=== PATIENT | female | born 1950 | race Caucasian/White ===

== ENCOUNTER → 2019-09-14 11:30 | Outpatient (BNVA) | payer MEDICARE, SELFPAY | PROVIDERS: Family Provider Family Medicine; PCP Nurse Practitioner Family; Visit Provider Internal Medicine Cardiovascular Disease | DX: D69.9 Hemorrhagic condition, unspecified (principal) | CPT/HCPCS: 36416; 85610 ==

== ENCOUNTER → 2019-09-21 12:01 | Outpatient (BNVA) | payer MEDICARE, SELFPAY | PROVIDERS: Family Provider Family Medicine; PCP Nurse Practitioner Family; Visit Provider Internal Medicine Cardiovascular Disease | DX: Z79.01 Long term (current) use of anticoagulants (principal) | CPT/HCPCS: 85610 ==

== ENCOUNTER → 2019-09-30 13:22 | Outpatient (BNVA) | payer MEDICARE, SELFPAY | PROVIDERS: Family Provider Family Medicine; PCP Nurse Practitioner Family; Visit Provider Internal Medicine Cardiovascular Disease | DX: D69.9 Hemorrhagic condition, unspecified (principal); I48.91 Unspecified atrial fibrillation | CPT/HCPCS: 85610 ==

== ENCOUNTER → 2019-10-12 11:24 | Outpatient (BNVA) | payer MEDICARE, SELFPAY | PROVIDERS: Family Provider Family Medicine; PCP Nurse Practitioner Family; Visit Provider Family Medicine | DX: Z79.01 Long term (current) use of anticoagulants (principal) | CPT/HCPCS: 85610 ==

== ENCOUNTER → 2020-08-02 15:28 | Outpatient (BNVA) | payer MEDICARE, SELFPAY | PROVIDERS: Family Provider Family Medicine; PCP Nurse Practitioner Family; Visit Provider Internal Medicine Cardiovascular Disease | DX: I48.91 Unspecified atrial fibrillation (principal) | CPT/HCPCS: 85610 ==

== ENCOUNTER → 2020-08-08 14:03 | Outpatient (BNVA) | payer MEDICARE, SELFPAY | PROVIDERS: Family Provider Family Medicine; PCP Nurse Practitioner Family; Visit Provider Family Medicine | DX: I48.91 Unspecified atrial fibrillation (principal) | CPT/HCPCS: 85610 ==

== ENCOUNTER 2020-09-01 08:11 | Outpatient (CLI) | payer MEDICARE, SELFPAY ==
--- NOTE | 2020-09-01 08:45 | USCV_ITS ---
Blanche Singleton Age: 70 Gender: F : 1950 Exam Date: 09/01/2020 08:43 Ordering Phys: Alberta Callahan MD ([email or web address]) Technologist: Barbi Reed Exam Location: [facility] – [place] Indication: AFIB, KNOWN CAD BP: 126 / 74 HR: 75 Rhythm: Sinus Technical Quality: Adequate MEASUREMENTS (Male / Female) Normal Values 2D ECHO LV Diastolic Diameter PLAX 3.1 cm 4.2 - 5.9 / 3.9 - 5.3 cm LV Systolic Diameter PLAX 2.5 cm LV Chamber Size 3.6 cm IVS Diastolic Thickness 1.3 cm 0.6 - 1.0 / 0.6 - 0.9 cm IVS Systolic Thickness 1.3 cm LVPW Diastolic Thickness 1.2 cm 0.6 - 1.0 / 0.6 - 0.9 cm LVPW Systolic Thickness 1.6 cm RV Chamber Size 2.8 cm LVOT Diameter 2.1 cm LV Ejection Fraction 2D Teich 39.2 % LV Ejection Fraction MOD 2C 64.6 % LV Ejection Fraction 2C AL 63.8 % LA Diameter 4.9 cm LA Width 3.5 cm LA Height 5.0 cm RA Width 3.5 cm RA Height 4.1 cm M-MODE LV Diastolic Diameter MM 3.3 cm 4.2 - 5.9 / 3.9 - 5.3 cm LV Systolic Diameter MM 2.0 cm LV Ejection Fraction MM Teich 71.1 % IVS Diastolic Thickness MM 0.8 cm 0.6 - 1.0 / 0.6 - 0.9 cm IVS Systolic Thickness MM 1.3 cm LVPW Diastolic Thickness MM 1.1 cm 0.6 - 1.0 / 0.6 - 0.9 cm LVPW Systolic Thickness MM 1.5 cm RV Diastolic Diameter MM 1.2 cm Aortic Annulus Diameter 3.4 cm LA Ao Ratio MM 1.5 MV E Point Septal Separation 0.3 cm DOPPLER AV Peak Velocity 200.0 cm/s LVOT Peak Velocity 147.0 cm/s AV Area Cont Eq vti 2.5 cm squared AV Area Cont Eq pk 2.5 cm squared MV Area PHT 3.9 cm squared Mitral E to A Ratio 1.1 MV E' Velocity 54.0 cm/s Mitral E to MV E' Ratio 9.0 Mitral E to LV E' Lateral Ratio 8.9 Mitral E to LV E' Septal Ratio 9.3 TR Peak Velocity 130.7 cm/s TR Peak Gradient 6.8 mmHg TR Mean Velocity 103.5 cm/s TR Mean Gradient 4.7 mmHg TR Velocity Time Integral 34.1 cm TV Peak E Velocity 60.0 cm/s Right Atrial Pressure 3.0 mmHg Pulmonary Artery Systolic Pressu 9.8 mmHg PV Peak Velocity 85.0 cm/s RV Acceleration Time 0.1 s RV Ejection Time 0.4 s RV AcT/ET 0.4 FINDINGS Left Ventricle Normal left ventricular size, systolic function and wall thickness, with no regional wall motion abnormalities. Left ventricular ejection fraction is estimated at 65 %. Normal diastolic function. Right Ventricle Normal right ventricular size and systolic function. Right ventricular systolic pressure 9.8 mmHg. Right Atrium Normal right atrial size. Left Atrium Mildly increased left atrial size. Mitral Valve Thickened mitral valve. No mitral valve stenosis. Trace mitral valve regurgitation. Aortic Valve Aortic valve not well visualized. Thickened aortic valve. No aortic valve stenosis. No aortic valve regurgitation. Tricuspid Valve Structurally normal tricuspid valve. Trace to mild tricuspid valve regurgitation. Pulmonic Valve Pulmonic valve not well visualized. Pericardium No pericardial effusion. Aorta Normal sized aortic root. Normal sized inferior vena cava. CONCLUSIONS 1. Normal left ventricular size, systolic function and wall thickness, with no regional wall motion abnormalities. Left ventricular ejection fraction is estimated at 65 %. Normal diastolic function. 2. Normal right ventricular size and systolic function. 3. No significant valvular abnormaity. 4. Normal pulmonary artery pressure. 5. No prior similar studies to compare. Brittany Lubin MD (Electronically Signed) Final Date: 04 September 2020 21:28 S
== END 2020-09-01 08:12 | disposition home or self-care (01) ==
LOC: RAD 08:23
PROVIDERS: PCP Family Medicine; Visit Provider Internal Medicine Cardiovascular Disease
DX: I48.91 Unspecified atrial fibrillation (principal); I25.10 Atherosclerotic heart disease of native coronary artery without angina pectoris
CPT/HCPCS: 93306

== ENCOUNTER → 2021-01-08 10:31 | Outpatient (BNVA) | payer MEDICARE, SELFPAY | PROVIDERS: PCP Family Medicine; Visit Provider Family Medicine | DX: I10 Essential (primary) hypertension (principal); E05.90 Thyrotoxicosis, unspecified without thyrotoxic crisis or storm; L30.9 Dermatitis, unspecified; I48.91 Unspecified atrial fibrillation; F17.219 Nicotine dependence, cigarettes, with unspecified nicotine-induced disorders | CPT/HCPCS: 80053; 80061; 82043; 82728; 83550; 84439; 84443; 84481; 85025 ==

== ENCOUNTER → 2021-05-31 10:05 | Outpatient (BNVA) | payer MEDICARE, SELFPAY | PROVIDERS: PCP Family Medicine; Visit Provider Family Medicine | DX: E05.90 Thyrotoxicosis, unspecified without thyrotoxic crisis or storm (principal); I48.91 Unspecified atrial fibrillation | CPT/HCPCS: 80053; 83516; 84439; 84443; 84480; 85025 ==

== ENCOUNTER → 2021-08-09 10:40 | Outpatient (BNVA) | payer MEDICARE, SELFPAY | PROVIDERS: PCP Family Medicine; Visit Provider Internal Medicine | DX: E05.90 Thyrotoxicosis, unspecified without thyrotoxic crisis or storm (principal); I48.91 Unspecified atrial fibrillation; E04.1 Nontoxic single thyroid nodule | CPT/HCPCS: 99214 ==

== ENCOUNTER 2021-09-21 14:01 | Outpatient (CLI) | payer MEDICARE, SELFPAY ==
--- NOTE | 2021-09-21 15:00 | USCV_ITS ---
Blanche Singleton Age: 71 Gender: F : 1950 Exam Date: 09/21/2021 14:32 Ordering Phys: Nikole Hardwick DO Technologist: DESI Exam Location: [facility] – [place] Indication: RT LEG PAIN / NUMBNESS HISTORY: RT LEG PAIN / NUMBNESS PROCEDURES: The venous duplex Doppler examination of both lower extremities was performed in the standard fashion. The following venous structures were evaluated: common femoral vein, profunda vein, proximal portion of the greater saphenous vein, superficial femoral vein, and the popliteal vein. In addition, the posterior tibial and peroneal trunk were evaluated. FINDINGS: Normal 2-D Doppler and augmentation and compressibility throughout the lower extremity venous structures. Additional imaging through the proximal calf veins also reveals no thrombus. Limited evaluation of the greater saphenous vein is patent with no thrombus. CONCLUSIONS No DVT right lower extremity. Dr. Gemini Mock DO (Electronically Signed) Final Date: 21 September 2021 15:34 S
== END 2021-09-21 14:02 | disposition home or self-care (01) ==
LOC: RAD 14:16
PROVIDERS: PCP Family Medicine; Visit Provider Family Medicine
DX: M79.604 Pain in right leg (principal); R20.0 Anesthesia of skin
CPT/HCPCS: 93971

== ENCOUNTER 2021-10-15 15:01 | Outpatient (CLI) | payer MEDICARE, SELFPAY ==
--- NOTE | 2021-10-15 15:07 | XR_ITS ---
WS: [id number] Exam: XR hip RT 2-3V wo/w pel* [id number] Date/Time of Exam: 10/15/2021 3:16 PM Reason For Exam: right hip pain No fracture or dislocation. Mild degenerative change of the joint compartment. Normal soft tissues. O steopenia. XR/XR hip RT 2-3V wo/w pel* [id number] IMPRESSION: 1. Mild DJD. Osteopenia.
== END 2021-10-15 15:02 | disposition home or self-care (01) ==
PROVIDERS: PCP Family Medicine; Visit Provider Family Medicine
DX: M16.11 Unilateral primary osteoarthritis, right hip (principal); M85.88 Other specified disorders of bone density and structure, other site
CPT/HCPCS: 73502

== ENCOUNTER 2022-03-08 12:17 | Outpatient (CLI) | payer MEDICARE, SELFPAY ==
--- NOTE | 2022-03-08 12:45 | US_ITS ---
WS: [id number] THYROID ULTRASOUND HISTORY: thyroid nodule COMPARISON: 01/15/2018 Right lobe: 5.1 cm x 4.0 cm x 10.0 cm (w x ap x l). Volume: 107.5 cm3. Markedly enlarged heterogeneous, nodular thyroid. There is increased vascularity throughout. There ar e no well discrete nodules or hypoechoic nodules with echogenic foci which are progressing. Left lobe: 3.2 cm x 3.2 cm x 7.3 cm (w x ap x l). Volume: 39.5 cm3. Enlarged thyroid with very heterogeneous with multiple nodular changes. There are a few areas of shad owing from coarse calcifications. Isthmus: 2.5 cm. US/US thyroid [id number] IMPRESSION: 1. Markedly enlarged heterogeneous nodular thyroid most consistent with a mult inodular goiter. There is not one discrete nodule that is more concerning than another. Would be difficult to determine a focal nodule which would be at incre ased risk for carcinoma. 2. Thyroid gland has increased in size since 01/15/2018.
== END 2022-03-08 12:18 | disposition home or self-care (01) ==
PROVIDERS: PCP Family Medicine; Visit Provider Internal Medicine
DX: E05.90 Thyrotoxicosis, unspecified without thyrotoxic crisis or storm (principal)
CPT/HCPCS: 76536

== ENCOUNTER → 2022-03-13 11:53 | Outpatient (BNVA) | payer MEDICARE, SELFPAY | PROVIDERS: PCP Family Medicine; Visit Provider Internal Medicine | DX: E04.1 Nontoxic single thyroid nodule (principal); E05.90 Thyrotoxicosis, unspecified without thyrotoxic crisis or storm | CPT/HCPCS: 84439; 84443; 84480 ==

== ENCOUNTER → 2022-03-21 09:36 | Outpatient (BNVA) | payer MEDICARE, SELFPAY | PROVIDERS: PCP Family Medicine; Visit Provider Internal Medicine | DX: F17.210 Nicotine dependence, cigarettes, uncomplicated (principal); E05.90 Thyrotoxicosis, unspecified without thyrotoxic crisis or storm; I48.91 Unspecified atrial fibrillation; E04.1 Nontoxic single thyroid nodule | CPT/HCPCS: 99214 ==

== ENCOUNTER → 2022-06-03 11:07 | Outpatient (BNVA) | payer MEDICARE, SELFPAY | PROVIDERS: PCP Family Medicine; Visit Provider Internal Medicine | DX: I48.91 Unspecified atrial fibrillation (principal); E05.90 Thyrotoxicosis, unspecified without thyrotoxic crisis or storm; E04.1 Nontoxic single thyroid nodule | CPT/HCPCS: 84439; 84443; 84481 ==

== ENCOUNTER → 2022-09-03 11:22 | Outpatient (BNVA) | payer MEDICARE, SELFPAY | PROVIDERS: PCP Family Medicine; Visit Provider Internal Medicine | DX: E04.1 Nontoxic single thyroid nodule (principal); E05.90 Thyrotoxicosis, unspecified without thyrotoxic crisis or storm; I48.91 Unspecified atrial fibrillation; I10 Essential (primary) hypertension | CPT/HCPCS: 84439; 84443; 84480 ==

== ENCOUNTER → 2022-11-12 13:04 | Outpatient (BNVA) | payer MEDICARE, SELFPAY | PROVIDERS: PCP Family Medicine; Visit Provider Internal Medicine | DX: I48.91 Unspecified atrial fibrillation (principal); E05.90 Thyrotoxicosis, unspecified without thyrotoxic crisis or storm | CPT/HCPCS: 84439; 84443; 84480 ==

== ENCOUNTER → 2022-11-18 13:42 | Outpatient (BNVA) | payer MEDICARE, SELFPAY | PROVIDERS: PCP Family Medicine; Visit Provider Internal Medicine | DX: I48.91 Unspecified atrial fibrillation (principal); E04.1 Nontoxic single thyroid nodule; E05.90 Thyrotoxicosis, unspecified without thyrotoxic crisis or storm | CPT/HCPCS: 84439 ==

== ENCOUNTER → 2023-04-01 15:05 | Outpatient (BNVA) | payer MEDICARE, SELFPAY | PROVIDERS: PCP Family Medicine; Visit Provider Internal Medicine Cardiovascular Disease | DX: I44.0 Atrioventricular block, first degree (principal); I10 Essential (primary) hypertension; F17.219 Nicotine dependence, cigarettes, with unspecified nicotine-induced disorders | CPT/HCPCS: 93005; 99213 ==

== ENCOUNTER 2023-09-02 13:13 | Emergency (ER) | payer MEDICARE, SELFPAY ==
[2023-09-02 13:54] VITALS: BP 100/69; PULSE 103; RESP 16; TEMP 36.7; O2SAT 97; BMI 22.0
--- NOTE | 2023-09-02 17:46 | ED_ITS ---
HPI - Dizziness General: Chief Complaint: Dizziness Stated Complaint: Dizzieness Time Seen by Provider: 09/02/23 17:38 Source: patient Mode of arrival: EMS History of Present Illness: MD elicited complaint: dizziness Associated symptoms: Denies chest pain or chills Review of Systems Const: Denies: fever(s) or chills Card: Denies: chest pain Resp: Denies: dyspnea GI: Denies: abdominal pain : Denies: dysuria, urinary frequency or urinary urgency Musc: Denies: neck pain or back pain Skin/Breast: Denies: rash PFSH ED PFSH: Medical History Osteopenia Anemia Thyroid disease Hx of hyperthroidism - treated about 2 years ago. Hypertension Atrial fibrillation Surgical History H/O: hysterectomy H/O mastectomy Hx of breast implants, bilateral Family History Other Cancer Social History Smoking and tobacco/nicotine status: current every day tobacco/nicotine user cigarettes Packs smoked per day: 0.5 Alcohol intake: never Substance/Drug Use: never Physical Exam Const: COMMON NORMALS: no acute distress GENERAL APPEARANCE: cooperative and comfortable ORIENTATION/CONSCIOUSNESS: Yes awake, Yes oriented to person, Yes oriented to place and Yes oriented to time HENMT: COMMON NORMALS: normocephalic, atraumatic and hearing grossly normal bilaterally HEAD & SCALP: normocephalic and atraumatic Resp: COMMON NORMALS: normal respiratory effort, No retractions, No use of accessory muscles and clear to auscultation bilaterally AUSCULTATION: clear to auscultation bilaterally Cardio: COMMON NORMALS: regular rate, regular rhythm and No murmurs present (Cardio) RATE: regular rate RHYTHM: regular rhythm GI: COMMON NORMALS: Soft to palpation and No hepatosplenomegaly present AUSCULTATION: Yes normoactive bowel sounds PALPATION: Yes Soft to palpation, No Tenderness to palpation present (GI), No Guarding due to palpation present (GI) and Yes No hepatosplenomegaly present Extremity: COMMON NORMALS: normal to inspection, capillary refill normal, no clubbing, cyanosis or edema, no calf tenderness and no pedal edema Neuro: SENSORIUM/ORIENTATION: Yes oriented to person, Yes oriented to place and Yes oriented to time Skin: COMMON NORMALS: no rashes or lesions noted GENERAL SKIN EXAM: no rashes or lesions noted Course Vital Signs: Vital signs: Vital Signs Temperature 98.1 F 09/02/23 13:54 Pulse Rate 103 H 09/02/23 13:54 Respiratory Rate 16 09/02/23 13:54 Blood Pressure 100/69 09/02/23 13:54 Pulse Oximetry 97 09/02/23 13:54 Oxygen Delivery Me thod Room Air 09/02/23 13:54 Discharge Plan Discharge Condition: Stable Prescriptions: No Action ferrous sulfate [Feosol] 325 mg (65 mg iron) tablet 325 mg PO DAILY clobetasol 0.05 % ointment 1 applic topical BID PRN Rx Instructions: Start- apply to hands and feet x 2 weeks then switch to triamcinolone triamcinolone acetonide 0.1 % ointment 1 applic topical BID PRN Rx Instructions: apply to hands and feet x 2 weeks alternating with clobetasol acetaminophen 325 mg tablet 325 mg PO QID PRN losartan-hydrochlorothiazide 100-25 mg tablet 1 tab PO DAILY Qty: 90 1RF metoprolol succinate 25 mg tablet extended release 24 hr 37.5 mg PO DAILY Qty: 135 1RF Referrals: Nikole Hardwick DO [Primary Care Provider] - Coding Level of Care Code ED 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
--- NOTE | 2023-09-02 17:47 | XRR_ITS ---
PROCEDURE INFORMATION: Exam: XR Chest Exam date and time: 09/02/2023 5:54 PM Age: 73 years old Clinical indication: Patient HX: C/O dizziness, cough; Additional info: Dyspnea/cough TECHNIQUE: Imaging protocol: Radiologic exam of the chest. Views: 1 view. COMPARISON: CR XR chest 1V [id number] 01/28/2018 17:42 FINDINGS: Lungs: Chronic interstitial prominence in both lungs. Probable emphysema. Mild atelectasis or scarring in the lung bases. Pleural spaces: Unremarkable. No pleural effusion. No pneumothorax. Heart/Mediastinum: Unremarkable. No cardiomegaly. Bones/joints: Thoracolumbar scoliosis and degenerative changes. No acute fracture visualized. Soft tissues: Right breast implant. XR/XR chest 1V portable [id number] IMPRESSION: No acute findings.
--- NOTE | 2023-09-02 17:55 | W.ED.SOB ---
Documented by User: Michael Valentine DO 09/03/23 06:55 HPI - SOB/Dyspnea General: Chief Complaint: Dizziness Stated Complaint: Dizzieness Time Seen by Provider: 09/02/23 17:38 Source: patient Mode of arrival: EMS History of Present Illness: HPI Narrative: 73-year-old female presents emergency room related dizziness shortness of breath cough nausea weakness and diarrhea generalized malaise along with a headache this been going on for the last 4 to 5 days. She is seen in a primary care office this morning and diagnosed with pneumonia she had been worsening so and presented to the emergency room. She was started on oral antibiotics this morning. She has no known history of any heart disease known history of chronic respiratory illness. They did do a COVID antigen this morning which was negative. MD elicited complaint: shortness of breath and cough Onset (ago): day(s) (5) Context: recent illness Timing: constant and progressively worsening Severity: mild Exacerbating factors: exertion and coughing Relieving factors: nothing Associated symptoms: Reports chest congestion, cough, fever(s), myalgias and nausea; Deny abdominal pain, chest pain, diaphoresis, dizziness, extremity pain, hemoptysis, lightheadedness, orthopnea, palpitations, paresthesias, polydipsia, polyuria, rash, sense of impending doom, syncope or vomiting Treatment prior to arrival: oxygen Related Data: Home oxygen amount: none Review of Systems Const: Reports: fever(s); Denies: diaphoresis Card: Denies: chest pain, palpitations, lightheadedness, syncope or orthopnea Resp: Reports: chest congestion; Denies: hemoptysis GI: Reports: nausea; Denies: abdominal pain or vomiting : Denies: dysuria, urinary frequency or urinary urgency Musc: Denies: extremity pain Skin/Breast: Denies: rash Neuro: Denies: dizziness Endo: Denies: polyuria or polydipsia PFSH ED PFSH: Medical History Osteopenia Anemia Thyroid disease Hx of hyperthroidism - treated about 2 years ago. Hypertension Atrial fibrillation Surgical History H/O: hysterectomy H/O mastectomy Hx of breast implants, bilateral Family History Other Cancer Social History Smoking and tobacco/nicotine status: current every day tobacco/nicotine user cigarettes Packs smoked per day: 0.5 Alcohol intake: never Substance/Drug Use: never Physical Exam Const: GENERAL APPEARANCE: cooperative and comfortable ORIENTATION/CONSCIOUSNESS: Yes awake, Yes oriented to person, Yes oriented to place and Yes oriented to time HENMT: COMMON NORMALS: normocephalic, atraumatic and hearing grossly normal bilaterally HEAD & SCALP: normocephalic and atraumatic Resp: COMMON NORMALS: normal respiratory effort, No retractions and No use of accessory muscles AUSCULTATION: rhonchi and wheezes Cardio: COMMON NORMALS: regular rate, regular rhythm and No murmurs present (Cardio) RATE: regular rate RHYTHM: regular rhythm GI: COMMON NORMALS: Soft to palpation and No hepatosplenomegaly present AUSCULTATION: Yes normoactive bowel sounds PALPATION: Yes Soft to palpation, No Tenderness to palpation present (GI), No Guarding due to palpation present (GI) and Yes No hepatosplenomegaly present Extremity: COMMON NORMALS: normal to inspection, capillary refill normal, no clubbing, cyanosis or edema, no calf tenderness and no pedal edema Neuro: SENSORIUM/ORIENTATION: Yes oriented to person, Yes oriented to place and Yes oriented to time Skin: COMMON NORMALS: no rashes or lesions noted GENERAL SKIN EXAM: no rashes or lesions noted Course Vital Signs: Vital signs: Vital Signs Temperature 98.1 F 09/02/23 13:54 Pulse Rate 100 09/02/23 20:55 Respiratory Rate 181 H 09/02/23 18:12 Blood Pressure 146/81 09/02/23 20:55 Pulse Oximetry 94 09/02/23 20:55 Oxygen Delivery Me thod Room Air 09/02/23 18:12 MDM - SOB/Dyspnea Medical Decision Making Care signed out to Dr. Duran at change of shift. See final notes for diagnosis and disposition. Physical exam completed document I reviewed the patient's laboratory findings as well as the initial chart after receiving report from the outgoing ER physician Dr. Valentine. I will provide the patient written prescription for p.o. antibiotics given her findings consistent with urinary tract infection. Lab Data 09/02/23 19:20 09/02/23 19:20 Labs/Radiology: Radiology Impressions Chest X-Ray 09/02/23 17:47 IMPRESSION: No acute findings. Laboratory Results WBC 4.10 10^3/uL (3.29-11.43) 09/02/23 19:20 RBC 4.12 10^6/uL (3.85-5.65) 09/02/23 19:20 Hgb 11.40 g/dL (11.27-16.99) 09/02/23 19:20 Hct 34.3 % (36-47) L 09/02/23 19:20 MCV 83.3 fl (85-98) L 09/02/23 19:20 MCH 27.7 pg (27-33) 09/02/23 19:20 MCHC 33.2 g/dL (30-55) 09/02/23 19:20 RDW 14.1 % (12.1-15.1) 09/02/23 19:20 Plt Count 165 10^3/cmm (157-399) 09/02/23 19:20 MPV 11.2 fL (7.4-10.4) H 09/02/23 19:20 Neut % (Auto) 59.3 % 09/02/23 19:20 Lymph % (Auto) 33.4 % 09/02/23 19:20 Bates % (Auto) 7.1 % 09/02/23 19:20 Eos % (Auto) 0.0 % 09/02/23 19:20 Baso % (Auto) 0.0 % 09/02/23 19:20 Neut # (Auto) 2.43 10^3/uL (1.8-7.7) 09/02/23 19:20 Lymph # (Auto) 1.4 10^3/uL (0.8-4.8) 09/02/23 19:20 Bates # (Auto) 0.3 10^3/uL (0.2-0.9) 09/02/23 19:20 Eos # (Auto) 0.0 10^3/uL (0.0-0.8) 09/02/23 19:20 Baso # (Auto) 0.0 10^3/uL (0.0-0.1) 09/02/23 19:20 Nucleated RBC % (auto) 0 % 09/02/23 19:20 Nucleated RBCs # 0.0 /100WBC 09/02/23 19:20 Sodium 139 mmol/L (136-145) 09/02/23 19:20 Potassium 3.7 mmol/L (3.5-5.1) 09/02/23 19:20 Chloride 105 mmol/L (98-107) 09/02/23 19:20 Carbon Dioxide 20 mmol/L (22-29) L 09/02/23 19:20 Anion Gap 17.7 (5-19) 09/02/23 19:20 BUN 31 mg/dL (8-23) H 09/02/23 19:20 Creatinine 1.3 mg/dL (0.5-0.9) H 09/02/23 19:20 GFR Calculation Not Reportable 09/02/23 19:20 Glucose 109 mg/dL (65-115) 09/02/23 19:20 Calculated Osmolality 295 mOsm/kg (285-295) 09/02/23 19:20 Calcium 10.6 mg/dL (8.5-10.5) H 09/02/23 19:20 Total Bilirubin 0.3 mg/dL (0.15-1.2) 09/02/23 19:20 AST 28 U/L (0-32) 09/02/23 19:20 ALT 11 U/L (0-33) 09/02/23 19:20 Alkaline Phosphatase 76 U/L (35-105) 09/02/23 19:20 Total Protein 7.0 g/dL (6.6-8.7) 09/02/23 19:20 Albumin 3.5 g/dL (3.5-5.2) 09/02/23 19:20 Globulin 3.5 g/dL (1.3-4.6) 09/02/23 19:20 Urine Color Dark yellow (Yellow) 09/02/23 19:21 Urine Appearance Sl hazy (CLEAR) A 09/02/23 19:21 Urine pH 5 (5-7) 09/02/23 19:21 Ur Specific [place] 1.020 (1.005-1.030) 09/02/23 19:21 Urine Protein Trace (Negative) 09/02/23 19:21 Urine Glucose (UA) Norm (Normal) 09/02/23 19:21 Urine Ketones Negative (Negative) 09/02/23 19:21 Urine Blood Trace (Negative) H 09/02/23 19:21 Urine Nitrate Negative (Negative) 09/02/23 19:21 Urine Bilirubin Neg (Negative) 09/02/23 19:21 Urine Urobilinogen Norm mg/dL (Negative) 09/02/23 19:21 Ur Leukocyte Esterase Trace (Negative) H 09/02/23 19:21 Urine RBC 0-4 /hpf (0-2) H 09/02/23 19:21 Urine WBC 0-4 /hpf (0-5) H 09/02/23 19:21 Ur Squamous Epith Cells 5-10 /hpf (0-5) H 09/02/23 19:21 Amorphous Sediment Trace /hpf 09/02/23 19:21 Urine Bacteria 1+ /hpf (NONE) H 09/02/23 19:21 Hyaline Casts 0-4 /lpf H 09/02/23 19:21 Fine Granular Casts 0-4 /lpf H 09/02/23 19:21 Urine Mucus 2+ /hpf 09/02/23 19:21 Coronavirus 229E (PCR) Not detected (NOT DETECT) 09/02/23 18:25 SARS-CoV-2 (PCR) Not detected (NOT DETECT) 09/02/23 18:25 Discharge Plan Discharge Patient Disposition: Home Clinical Impression: Urinary tract infection Qualifiers: Urinary tract infection type: acute cystitis Hematuria presence: without hematuria Qualified Code(s): N30.00 - Acute cystitis without hematuria Condition: Stable Prescriptions: New Macrobid 100 mg capsule 100 mg PO Q12H 7 Days Qty: 14 0RF Rx Instructions: must administer with a meal/food No Action ferrous sulfate [Feosol] 325 mg (65 mg iron) tablet 325 mg PO DAILY clobetasol 0.05 % ointment 1 applic topical BID PRN Rx Instructions: Start- apply to hands and feet x 2 weeks then switch to triamcinolone triamcinolone acetonide 0.1 % ointment 1 applic topical BID PRN Rx Instructions: apply to hands and feet x 2 weeks alternating with clobetasol acetaminophen 325 mg tablet 325 mg PO QID PRN losartan-hydrochlorothiazide 100-25 mg tablet 1 tab PO DAILY Qty: 90 1RF metoprolol succinate 25 mg tablet extended release 24 hr 37.5 mg PO DAILY Qty: 135 1RF Discharge Orders: Discharge ED (Routine); Ordered 09/02/23 Ordered By: Abel Duran Referrals: Nikole Hardwick DO [Primary Care Provider] - Discharge Diet: Advance as tolerated Patient Instructions: Opioid Safety, Pain Management Activity Restrictions/Additional Instructions: Activity Restrictions/Additional Instructions: Thank you for choosing [facility] for your healthcare needs today. Please realize that you were seen in the Emergency Department and that we are providing you with an emergency medical screening exam and this may not be a complete and all inclusive of all the testing and or medical work-up that you may need to determine your ailment or severity of your illness. It is very important that you follow-up as instructed with your Primary care provider or Specialist for additional evaluation and to discuss your medical treatment plan. You may return to the Emergency Department should you have concerns or if your condition changes or worsens in any way. Coding Level of Care Code ED Telemetry Registered Nurse for Chg Fwd Documented by User: Abel Duran MD 09/02/23 21:06 HPI - SOB/Dyspnea General: Chief Complaint: Dizziness Stated Complaint: Dizzieness Time Seen by Provider: 09/02/23 17:38 [facility] ED PFSH: Medical History Osteopenia Anemia Thyroid disease Hx of hyperthroidism - treated about 2 years ago. Hypertension Atrial fibrillation Surgical History H/O: hysterectomy H/O mastectomy Hx of breast implants, bilateral Family History Other Cancer Social History Smoking and tobacco/nicotine status: current every day tobacco/nicotine user cigarettes Packs smoked per day: 0.5 Alcohol intake: never Substance/Drug Use: never Course Vital Signs: Vital signs: Vital Signs Temperature 98.1 F 09/02/23 13:54 Pulse Rate 100 09/02/23 20:55 Respiratory Rate 181 H 09/02/23 18:12 Blood Pressure 146/81 09/02/23 20:55 Pulse Oximetry 94 09/02/23 20:55 Oxygen Delivery Me thod Room Air 09/02/23 18:12 MDM - SOB/Dyspnea Medical Decision Making Physical exam completed document I reviewed the patient's laboratory findings as well as the initial chart after receiving report from the outgoing ER physician Dr. Valentine. I will provide the patient written prescription for p.o. antibiotics given her findings consistent with urinary tract infection. Medical Records I reviewed the patient's medical records. Lab Data 09/02/23 19:20 09/02/23 19:20 Labs/Radiology: Radiology Impressions Chest X-Ray 09/02/23 17:47 IMPRESSION: No acute findings. Laboratory Results WBC 4.10 10^3/uL (3.29-11.43) 09/02/23 19:20 RBC 4.12 10^6/uL (3.85-5.65) 09/02/23 19:20 Hgb 11.40 g/dL (11.27-16.99) 09/02/23 19:20 Hct 34.3 % (36-47) L 09/02/23 19:20 MCV 83.3 fl (85-98) L 09/02/23 19:20 MCH 27.7 pg (27-33) 09/02/23 19:20 MCHC 33.2 g/dL (30-55) 09/02/23 19:20 RDW 14.1 % (12.1-15.1) 09/02/23 19:20 Plt Count 165 10^3/cmm (157-399) 09/02/23 19:20 MPV 11.2 fL (7.4-10.4) H 09/02/23 19:20 Neut % (Auto) 59.3 % 09/02/23 19:20 Lymph % (Auto) 33.4 % 09/02/23 19:20 Bates % (Auto) 7.1 % 09/02/23 19:20 Eos % (Auto) 0.0 % 09/02/23 19:20 Baso % (Auto) 0.0 % 09/02/23 19:20 Neut # (Auto) 2.43 10^3/uL (1.8-7.7) 09/02/23 19:20 Lymph # (Auto) 1.4 10^3/uL (0.8-4.8) 09/02/23 19:20 Bates # (Auto) 0.3 10^3/uL (0.2-0.9) 09/02/23 19:20 Eos # (Auto) 0.0 10^3/uL (0.0-0.8) 09/02/23 19:20 Baso # (Auto) 0.0 10^3/uL (0.0-0.1) 09/02/23 19:20 Nucleated RBC % (auto) 0 % 09/02/23 19:20 Nucleated RBCs # 0.0 /100WBC 09/02/23 19:20 Sodium 139 mmol/L (136-145) 09/02/23 19:20 Potassium 3.7 mmol/L (3.5-5.1) 09/02/23 19:20 Chloride 105 mmol/L (98-107) 09/02/23 19:20 Carbon Dioxide 20 mmol/L (22-29) L 09/02/23 19:20 Anion Gap 17.7 (5-19) 09/02/23 19:20 BUN 31 mg/dL (8-23) H 09/02/23 19:20 Creatinine 1.3 mg/dL (0.5-0.9) H 09/02/23 19:20 GFR Calculation Not Reportable 09/02/23 19:20 Glucose 109 mg/dL (65-115) 09/02/23 19:20 Calculated Osmolality 295 mOsm/kg (285-295) 09/02/23 19:20 Calcium 10.6 mg/dL (8.5-10.5) H 09/02/23 19:20 Total Bilirubin 0.3 mg/dL (0.15-1.2) 09/02/23 19:20 AST 28 U/L (0-32) 09/02/23 19:20 ALT 11 U/L (0-33) 09/02/23 19:20 Alkaline Phosphatase 76 U/L (35-105) 09/02/23 19:20 Total Protein 7.0 g/dL (6.6-8.7) 09/02/23 19:20 Albumin 3.5 g/dL (3.5-5.2) 09/02/23 19:20 Globulin 3.5 g/dL (1.3-4.6) 09/02/23 19:20 Urine Color Dark yellow (Yellow) 09/02/23 19:21 Urine Appearance Sl hazy (CLEAR) A 09/02/23 19:21 Urine pH 5 (5-7) 09/02/23 19:21 Ur Specific [place] 1.020 (1.005-1.030) 09/02/23 19:21 Urine Protein Trace (Negative) 09/02/23 19:21 Urine Glucose (UA) Norm (Normal) 09/02/23 19:21 Urine Ketones Negative (Negative) 09/02/23 19:21 Urine Blood Trace (Negative) H 09/02/23 19:21 Urine Nitrate Negative (Negative) 09/02/23 19:21 Urine Bilirubin Neg (Negative) 09/02/23 19:21 Urine Urobilinogen Norm mg/dL (Negative) 09/02/23 19:21 Ur Leukocyte Esterase Trace (Negative) H 09/02/23 19:21 Urine RBC 0-4 /hpf (0-2) H 09/02/23 19:21 Urine WBC 0-4 /hpf (0-5) H 09/02/23 19:21 Ur Squamous Epith Cells 5-10 /hpf (0-5) H 09/02/23 19:21 Amorphous Sediment Trace /hpf 09/02/23 19:21 Urine Bacteria 1+ /hpf (NONE) H 09/02/23 19:21 Hyaline Casts 0-4 /lpf H 09/02/23 19:21 Fine Granular Casts 0-4 /lpf H 09/02/23 19:21 Urine Mucus 2+ /hpf 09/02/23 19:21 Coronavirus 229E (PCR) Not detected (NOT DETECT) 09/02/23 18:25 SARS-CoV-2 (PCR) Not detected (NOT DETECT) 09/02/23 18:25 All radiology interpretation(s) finalized by discharge Discharge Plan Discharge Patient Disposition: Home Clinical Impression: Urinary tract infection Qualifiers: Urinary tract infection type: acute cystitis Hematuria presence: without hematuria Qualified Code(s): N30.00 - Acute cystitis without hematuria Condition: Stable Prescriptions: New Macrobid 100 mg capsule 100 mg PO Q12H 7 Days Qty: 14 0RF Rx Instructions: must administer with a meal/food No Action ferrous sulfate [Feosol] 325 mg (65 mg iron) tablet 325 mg PO DAILY clobetasol 0.05 % ointment 1 applic topical BID PRN Rx Instructions: Start- apply to hands and feet x 2 weeks then switch to triamcinolone triamcinolone acetonide 0.1 % ointment 1 applic topical BID PRN Rx Instructions: apply to hands and feet x 2 weeks alternating with clobetasol acetaminophen 325 mg tablet 325 mg PO QID PRN losartan-hydrochlorothiazide 100-25 mg tablet 1 tab PO DAILY Qty: 90 1RF metoprolol succinate 25 mg tablet extended release 24 hr 37.5 mg PO DAILY Qty: 135 1RF Discharge Orders: Discharge ED (Routine); Ordered 09/02/23 Ordered By: Abel Duran Referrals: Nikole Hardwick DO [Primary Care Provider] - Discharge Diet: Advance as tolerated Patient Instructions: Opioid Safety, Pain Management Activity Restrictions/Additional Instructions: Activity Restrictions/Additional Instructions: Thank you for choosing [facility] for your healthcare needs today. Please realize that you were seen in the Emergency Department and that we are providing you with an emergency medical screening exam and this may not be a complete and all inclusive of all the testing and or medical work-up that you may need to determine your ailment or severity of your illness. It is very important that you follow-up as instructed with your Primary care provider or Specialist for additional evaluation and to discuss your medical treatment plan. You may return to the Emergency Department should you have concerns or if your condition changes or worsens in any way. Coding Level of Care Code ED Telemetry Registered Nurse for Jeannine Navarro
[2023-09-02 18:12] VITALS: BP 130/73; RESP 181; O2SAT 94
--- NOTE | 2023-09-02 18:28 | PC.NURSE ---
pt requested to walk to bathroom to get urine sample, this nurse offered to bring bedside commode, pt denied, states I am fine to walk . pt denied nurse assistance to bathroom. this nurse instructed pt to use call light if pt needs help and to stay seated if dizzy. pt verbalized understanding. pt ambulated to bathroom outside room 13.
[2023-09-02 19:33] LABS: Hematocrit 34.3 % (36-47); Lymphocytes # 1.4 10^3/uL (0.8-4.8); Lymphocytes % 33.4 %; Mean Corpuscular HGB Conc 33.2 g/dL (30-55); Mean Corpuscular Hemoglobin 27.7 pg (27-33); Mean Corpuscular Volume 83.3 fl (85-98); Mean Platelet Volume 11.2 fL (7.4-10.4); Monocytes # 0.3 10^3/uL (0.2-0.9); Monocytes % 7.1 %; Neutrophils # 2.43 10^3/uL (1.8-7.7); Neutrophils % 59.3 %; Nucleated Red Blood Cells % 0 %; Platelet Count 165 10^3/cmm (157-399); Red Blood Count 4.12 10^6/uL (3.85-5.65); Red Cell Distribution Width 14.1 % (12.1-15.1)
[2023-09-02 19:46] LABS: Add Urine Microscopic? YES; Bilirubin Urine Neg (Negative); Blood Urine Trace (Negative); Glucose Urine UA Norm (Normal); Ketones Urine Negative (Negative); Leukocyte Esterase Urine Trace (Negative); Nitrate Urine Negative (Negative); Protein Urine Trace (Negative); Urine Appearance SL Hazy (CLEAR); Urine Color Dark Yellow (Yellow); Urobilinogen Urine Norm (Negative); pH Urine 5 (5-7)
[2023-09-02 19:50] LABS: Add Urine Culture? No; Amorphous Sediment Urine TRACE /hpf; Bacteria Urine 1+ /hpf; Fine Granular Casts Urine 0-4 /lpf; Hyaline Casts Urine 0-4 /lpf; Mucus Urine 2+ /hpf; RBC Urine 0-4 /hpf (0-2); WBC Urine 0-4 /hpf (0-5)
[2023-09-02 19:50] LABS: Alanine Aminotransferase 11 U/L (0-33); Albumin Level 3.5 g/dL (3.5-5.2); Alkaline Phosphatase 76 U/L (35-105); Anion Gap 17.7 (5-19); Aspartate Amino Transferase 28 U/L (0-32); Blood Urea Nitrogen 31 mg/dL (8-23); Calcium 10.6 mg/dL (8.5-10.5); Carbon Dioxide 20 mmol/L (22-29); Chloride 105 mmol/L (98-107); Globulin 3.5 g/dL (1.3-4.6); Glucose 109 mg/dL (65-115); Osmolality Calculated 295 mOsm/kg (285-295); Potassium 3.7 mmol/L (3.5-5.1); Sodium 139 mmol/L (136-145); Total Bilirubin 0.3 mg/dL (0.15-1.2)
[2023-09-02 20:55] VITALS: BP 146/81; PULSE 100; O2SAT 94
[2023-09-02 20:58] LABS: Adenovirus Not Detected (NOT DETECT); Chlamydia Pneumoniae Not Detected (NOT DETECT); Coronavirus 229E,HKU1,NL63,OC4 Not Detected (NOT DETECT); Human Metapneumovirus Not Detected (NOT DETECT); Human Rhinovirus/Enterovirus Not Detected (NOT DETECT); Influenza A Not Detected (NOT DETECT); Influenza A H1 Not Detected (NOT DETECT); Influenza A H1-2009 Not Detected (NOT DETECT); Influenza A H3 Not Detected (NOT DETECT); Influenza B Not Detected (NOT DETECT); Mycoplasma Pneumoniae Not Detected (NOT DETECT); Parainfluenza Virus Type 1 Not Detected (NOT DETECT); Parainfluenza Virus Type 2 Not Detected (NOT DETECT); Parainfluenza Virus Type 3 Not Detected (NOT DETECT); Parainfluenza Virus Type 4 Not Detected (NOT DETECT); Respiratory Syncytial Virus A Not Detected (NOT DETECT); Respiratory Syncytial Virus B Not Detected (NOT DETECT); SARS-COV-2 Not Detected (NOT DETECT)
== END 2023-09-02 21:40 | disposition home or self-care (01) ==
PROVIDERS: Family Medicine; Emergency Provider Internal Medicine; PCP Family Medicine
DX: N30.00 Acute cystitis without hematuria (principal); I10 Essential (primary) hypertension; Z72.0 Tobacco use; Z11.52 Encounter for screening for COVID-19
CPT/HCPCS: 36415; 71045; 80053; 81001; 85025; 87635; 99284